=== PATIENT | male | born 2000 | race Caucasian/White ===

== ENCOUNTER → 2023-04-26 | Outpatient (CLI) | payer OTHER ==
[~2023-04-26] MED LIST: PROHANCE 279.3MG/ML 15ML VIAL ONE; PROHANCE 279.3MG/ML 5ML VIAL ONE
== END ==
LOC: M PLAIMG 07:35
PROVIDERS: ATTEND Physician Assistant
DX: N50.89 Other specified disorders of the male genital organs (principal)
CPT/HCPCS: 72197; A9576

== ENCOUNTER → 2023-09-05 | Outpatient (CLI) | payer OTHER | LOC: M RAD 08:32 | PROVIDERS: ATTEND Specialist | DX: N50.3 Cyst of epididymis (principal) ==